=== PATIENT | male | born 1970 | race Caucasian/White ===

== ENCOUNTER 2018-12-02 10:07 | Emergency (ER) | payer BC ==
[2018-12-02 10:22] VITALS: BP 123/78
--- NOTE | 2018-12-02 11:33 | UC ---
Lower Extremity/Ankle HPI - HPI Summary HPI Summary: Pt presents with c/o right ankle pain after "twisitng ankle" while hiking 1 day ago. Pt is using a CAM boot and using crutches as he can not bear full weight. - History of Current Complaint Chief Complaint: UCLowerExtremity Stated Complaint: RIGHT ANKLE INJURY Time Seen by Provider: 12/02/18 10:59 Hx Obtained From: Patient Onset/Duration: Sudden Onset, Lasting Days, Still Present Severity Initially: Moderate Severity Currently: Moderate Pain Intensity: 5 Aggravating Factor(s): Standing, Ambulation Alleviating Factor(s): Rest, Elevation Able to Bear Weight: Yes - minimal - Risk Factors Gout Risk Factors: Age Over 40, Male DVT Risk Factors: Negative Septic Arthritis Risk Factor: Negative - Allergies/Home Medications Allergies/Adverse Reactions: Allergies Allergy/AdvReac Type Severity Reaction Status Date / Time No Known Allergies Allergy Verified 12/02/18 10:17 Home Medications: Home Medications NK [No Home Medications Reported] 12/02/18 [History Confirmed 12/02/18] PMH/Surg Hx/FS Hx/Imm Hx Previously Healthy: Yes - Surgical History Surgical History: None - Family History Known Family History: Positive: Cardiac Disease - Social History Occupation: Employed Full-time Lives: With Family Alcohol Use: Rare Substance Use Type: None Smoking Status (MU): Never Smoked Tobacco Have You Smoked in the Last Year: No - Immunization History Vaccination Up to Date: Yes Review of Systems All Other Systems Reviewed And Are Negative: Yes Constitutional: Positive: Negative Skin: Positive: Negative Eyes: Positive: Negative ENT: Positive: Negative Respiratory: Positive: Negative Cardiovascular: Positive: Negative Gastrointestinal: Positive: Negative Genitourinary: Positive: Negative Motor: Positive: Decreased ROM - right ankle Neurovascular: Positive: Negative Musculoskeletal: Positive: Arthralgia, Decreased ROM, Myalgia Neurological: Positive: Negative Psychological: Positive: Negative Is Patient Immunocompromised?: No Physical Exam Triage Information Reviewed: Yes Appearance: Well-Appearing Vital Signs: Initial Vital Signs Temp 98.8 F 12/02/18 10:17 Pulse 66 12/02/18 10:17 Resp 16 12/02/18 10:17 BP 123/78 12/02/18 10:17 Pulse Ox 99 12/02/18 10:17 Vital Signs Reviewed: Yes Eye Exam: Normal ENT Exam: Normal Dental Exam: Normal Neck exam: Normal Respiratory Exam: Normal Respiratory: Positive: No respiratory distress Musculoskeletal: Positive: Strength Limited @ - right ankle- generalized, ROM Limited @ - right ankle Neurological Exam: Normal Psychological Exam: Normal Skin Exam: Normal Diagnostics - Radiology No standard instances Radiology Interpretation Completed By: Radiologist - Jordan Worker: Bel Munoz S, ([id number]) Editor Index: OLIVIA (TEGANANCE) Report Date: 2018 11:15:00 Report Status: Final ======= Start of Report Content Patient Name: GORDY KAUR Medical Record#: [id number] Ordering Physician: Shirin Lozano NP Acct.#: [id number] : 1970 Age: 48 Sex: M Location: [facility] Exam Date: 12/02/18 1115 ADM Status: REG ER Order Information: ANKLE RIGHT 3+VWS Accession Number: [id number] CPT: 62375 Indication: Right ankle injury. 3 views of the right ankle demonstrates ankle mortise intact. No fracture or dislocation noted. Soft tissue swelling is noted. IMPRESSION: Soft tissue swelling without fracture. <Electronically signed by Bel Munoz MD in OV> 12/02/18 1133 Dictated By: Bel Munoz MD Dictated Date/Time: 12/02/18 113 Transcribed Date/Time: 12/02/18 113 Copy to: CC:Shirin Lozano NP ; Kandi Callejas MD; No Primary Care Phys,NOPCP Imaging - [facility] [id number] [place] [id number] ph ([phone]) ph ([phone]) ph ([phone]) End of Report Content Lower Extremity Course/Dx - Differential Dx/Diagnosis Differential Diagnosis/HQI/PQRI: Fracture (Closed), Sprain, Strain Provider Diagnosis: Moderate right ankle sprain Discharge ED - Sign-Out/Discharge Documenting (check all that apply): Patient Departure All imaging exams completed and their final reports reviewed: Yes - Discharge Plan Condition: Stable Disposition: HOME Patient Education Materials: Ankle Sprain (ED) Referrals: No Primary Care Phys,NOPCP [Primary Care Provider] - [facility] [Outside] - If Needed - Billing Disposition and Condition Condition: STABLE Disposition: Home
== END 2018-12-02 11:46 | disposition home or self-care (01) ==
LOC: UCCORT 10:07
DX: S93.401A Sprain of unspecified ligament of right ankle, initial encounter (principal); X37.1XXA Tornado, initial encounter; Y93.01 Activity, walking, marching and hiking; Y92.9 Unspecified place or not applicable
CPT/HCPCS: 99211; G0463